=== PATIENT | female | born 1985 | race Caucasian/White ===

== ENCOUNTER 2017-09-05 11:12 | Emergency (ER) | payer OTHER ==
[2017-09-05] MEDS ORDERED: IBUPROFEN 600 MG TAB PO ONE (11:25)
[2017-09-05] MEDS ORDERED: ACETAMINOPHEN 500 MG TAB PO ONE (11:26)
[2017-09-05] MEDS ORDERED: NS 1,000 ML IV ONE (11:52)
--- NOTE | 2017-09-05 11:55 | EDPHY ---
H & P Time Seen by Provider: 09/05/17 11:38 HPI/ROS: CHIEF COMPLAINT: Cough, headache, fever HISTORY OF PRESENT ILLNESS: 32-year-old female presents emergency department reporting that for the last 2 and half days she has had a fever, headache, neck pain, feeling agitated, body aches, and cough. She reports feeling dizzy when she sits up or stands. No chest pain. No shortness of breath. No abdominal pain. No nausea. No vomiting. Patient is here with her mother. Mother reports patient has not been drinking fluids. Temperature on arrival to the emergency department was 102. Denies palpitations. REVIEW OF SYSTEMS: Aside from elements discussed in the HPI, a comprehensive 10-point review of systems was reviewed and is negative. PAST MEDICAL HISTORY: Depression. Denies asthma or other pulmonary history. SOCIAL HISTORY: Nonsmoker. VITAL SIGNS Reviewed by me. 38.8, 120. GENERAL: Well-developed, well-nourished, resting comfortably in no obvious respiratory distress. HEENT: Atraumatic. Eyes: No icterus, no injection. Mouth: moist mucous membranes. Dry lips. No erythema or lesions. Neck: supple with no adenopathy. No meningismus. Negative Kernig's. Negative Brudzinski's. LUNGS: Faint rhonchi and rales in the left base. CARDIAC: Tachycardic. Regular. No rubs murmurs or gallops. ABDOMEN: Soft, nontender, nondistended, bowel sounds normal. BACK: No CVA tenderness. EXTREMITIES: No trauma. No edema. Range of motion is normal throughout. NEURO: Alert and oriented, grossly nonfocal. SKIN: Warm and dry, no rash. PSYCHIATRIC: Normal mentation, no agitation. Smoking Status: Former smoker Constitutional: Initial Vital Signs Temperature (C) 38.8 C H 09/05/17 11:20 Heart Rate 120 H 09/05/17 11:20 Respiratory Rate 16 09/05/17 11:20 Blood Pressure 116/86 H 09/05/17 11:20 O2 Sat (%) 91 L 09/05/17 11:20 O2 Delivery Mode Room Air Allergies/Adverse Reactions: Penicillins Allergy (Verified 09/05/17 11:19) Home Medications: Medication Instructions Recorded LORazepam [Ativan (*)] 0.5 mg PO DAILY #21 tab 09/03/14 Sertraline HCl 09/03/14 Zyprexa 09/03/14 Albuterol Hfa Anes Only [Proair 2 puffs IH QID #1 mdi 09/05/17 Hfa Icu (*)] levOFLOXACIN [levAQUIN] 750 mg PO DAILY #6 tab 09/05/17 Medical Decision Making - Diagnostics Imaging Results: Imaging Impressions Chest X-Ray 09/05/17 11:51 Impression: Left lower lobe pneumonia. ED Course/Re-evaluation: IV was placed in the patient received a L of normal saline. Labs indicate no this eye ptosis, relatively normal electrolytes including a normal creatinine. Influenza is negative. Chest x-ray demonstrates a left lower lobe pneumonia. Patient received 1st dose of Levaquin while in the emergency department as she is allergic to penicillins. She received a neb treatment. Following the fluids in the neb, she looks much improved. She is bright, alert, in no distress. Patient was discharged with Levaquin and instructions regarding fluids, antipyretics, and albuterol meter dose inhaler. Of note, after the patient had been discharged patient's urinalysis was resulted showing 50-182 red cells per high-power field. Patient has had no urinary complaints. I note that the chart indicates she has just finished her period. I will contact the patient at home discussed this finding. Differential Diagnosis: Differential diagnosis for the patient's symptom complex was considered including but not limited to viral versus bacterial bronchitis, asthma, upper respiratory infection, lower respiratory infection, bronchospasm, pneumonia, influenza. - Data Points Laboratory Results: Laboratory Results 09/05/17 12:15 09/05/17 12:15 09/05/17 09/05/17 09/05/17 13:15 12:15 12:15 WBC 7.59 10^3/uL 10^3/uL (3.80-9.50) RBC 4.71 10^6/uL 10^6/uL (4.18-5.33) Hgb 14.1 g/dL g/dL (12.6-16.3) Hct 40.3 % % (38.0-47.0) MCV 85.6 fL fL (81.5-99.8) MCH 29.9 pg pg (27.9-34.1) MCHC 35.0 g/dL g/dL (32.4-36.7) RDW 12.9 % % (11.5-15.2) Plt Count 226 10^3/uL 10^3/uL (150-400) MPV 9.7 fL fL (8.7-11.7) Neut % (Auto) 77.3 % H % (39.3-74.2) Lymph % (Auto) 13.3 % L % (15.0-45.0) Barry % (Auto) 8.7 % % (4.5-13.0) Eos % (Auto) 0.1 % L % (0.6-7.6) Baso % (Auto) 0.3 % % (0.3-1.7) Nucleat RBC Rel Count 0.0 % % (0.0-0.2) Absolute Neuts (auto) 5.87 10^3/uL 10^3/uL (1.70-6.50) Absolute Lymphs (auto) 1.01 10^3/uL 10^3/uL (1.00-3.00) Absolute Monos (auto) 0.66 10^3/uL 10^3/uL (0.30-0.80) Absolute Eos (auto) 0.01 10^3/uL L 10^3/uL (0.03-0.40) Absolute Basos (auto) 0.02 10^3/uL 10^3/uL (0.02-0.10) Absolute Nucleated RBC 0.00 10^3/uL 10^3/uL (0-0.01) Immature Gran % 0.3 % % (0.0-1.1) Immature Gran # 0.02 10^3/uL 10^3/uL (0.00-0.10) Sodium Potassium Chloride Carbon Dioxide Anion Gap BUN Creatinine Estimated GFR Glucose Calcium Beta HCG, Qual NEGATIVE Urine Color YELLOW Urine Appearance HAZY Urine pH 7.5 (5.0-7.5) Ur Specific [place] 1.010 (1.002-1.030) Urine Protein TRACE H (NEGATIVE) Urine Ketones NEGATIVE (NEGATIVE) Urine Blood 3+ H (NEGATIVE) Urine Nitrate NEGATIVE (NEGATIVE) Urine Bilirubin NEGATIVE (NEGATIVE) Urine Urobilinogen 1.0 EU EU (0.2-1.0) Ur Leukocyte Esterase TRACE H (NEGATIVE) Urine RBC 50-182 /hpf H /hpf (0-3) Urine WBC 5-10 /hpf H /hpf (0-3) Ur Epithelial Cells TRACE /lpf /lpf (NONE-1+) Ur Renal Epithelial Cell OCCASIONAL /hpf H /hpf (NONE SEEN) Amorphous Sediment TRACE /hpf /hpf (NONE-1+) Urine Mucus TRACE /lpf /lpf (NONE-1+) Urine Glucose NEGATIVE (NEGATIVE) Nasal Influenza A PCR Nasal Influenza B PCR Influenza A,B Rapid 09/05/17 09/05/17 09/05/17 12:15 11:35 11:15 WBC RBC Hgb Hct MCV MCH MCHC RDW Plt Count MPV Neut % (Auto) Lymph % (Auto) Barry % (Auto) Eos % (Auto) Baso % (Auto) Nucleat RBC Rel Count Absolute Neuts (auto) Absolute Lymphs (auto) Absolute Monos (auto) Absolute Eos (auto) Absolute Basos (auto) Absolute Nucleated RBC Immature Gran % Immature Gran # Sodium 137 mEq/L mEq/L (135-145) Potassium 4.0 mEq/L mEq/L (3.5-5.2) Chloride 100 mEq/L mEq/L (97-110) Carbon Dioxide 24 mEq/l mEq/l (22-31) Anion Gap 13 mEq/L mEq/L (8-16) BUN 6 mg/dL L mg/dL (7-23) Creatinine 0.6 mg/dL mg/dL (0.6-1.0) Estimated GFR > 60 Glucose 121 mg/dL H mg/dL (70-100) Calcium 8.4 mg/dL L mg/dL (8.5-10.4) Beta HCG, Qual Urine Color Urine Appearance Urine pH Ur Specific Parlin Urine Protein Urine Ketones Urine Blood Urine Nitrate Urine Bilirubin Urine Urobilinogen Ur Leukocyte Esterase Urine RBC Urine WBC Ur Epithelial Cells Ur Renal Epithelial Cell Amorphous Sediment Urine Mucus Urine Glucose Nasal Influenza A PCR NEGATIVE FOR FLU A (NEGATIVE) Nasal Influenza B PCR NEGATIVE FOR FLU B (NEGATIVE) Influenza A,B Rapid NEGATIVE FOR FLU (NEGATIVE) Medications Given: Discontinued Medications Acetaminophen (Tylenol) 1,000 mg PO EDNOW ONE Stop: 09/05/17 11:27 Last Admin: 09/05/17 11:31 Dose: 1,000 mg Albuterol (Proventil Neb) 3 ml IH EDNOW ONE Stop: 09/05/17 12:56 Last Admin: 09/05/17 13:23 Dose: 3 ml Sodium Chloride (Ns) 1,000 mls @ 0 mls/hr IV ONCE ONE; Wide Open PRN Reason: Protocol Stop: 09/05/17 11:53 Last Admin: 09/05/17 12:08 Dose: 1,000 mls Ibuprofen (Motrin) 600 mg PO EDNOW ONE Stop: 09/05/17 11:26 Last Admin: 09/05/17 11:31 Dose: 600 mg Levofloxacin (Levaquin) 750 mg PO EDNOW ONE PRN Reason: Protocol Stop: 09/05/17 12:57 Last Admin: 09/05/17 13:22 Dose: 750 mg Departure - Departure Disposition: Home, Routine, Self-Care Clinical Impression: Pneumonia Qualifiers: Pneumonia type: due to unspecified organism Laterality: left Lung location: lower lobe of lung Qualified Code(s): J18.1 - Lobar pneumonia, unspecified organism Condition: Good Instructions: Pneumonia (ED) Additional Instructions: Please take antibiotics as directed. Levofloxacin 750 mg by mouth each day for the next 6 days starting tomorrow. You been given a prescription for a albuterol meter dose inhaler. Please use this as directed to help with any coughing as well as shortness of breath. You need to take Tylenol or ibuprofen for your fever. Please drink plenty of fluid. Return to the emergency department or seek care urgently if you are worsening despite the above treatments, especially if you develop severe shortness of breath, high fevers not controlled with Tylenol or ibuprofen, vomiting, chest pain, palpitations, or other concerns. Referrals: Kyleigh Shin MD [Primary Care Provider] - As per Instructions Stand Alone Forms: Work Excuse Prescriptions: Albuterol Hfa Anes Only [Proair Hfa Icu (*)] 2 puffs IH QID #1 mdi levOFLOXACIN [levAQUIN] 750 mg PO DAILY #6 tab
[2017-09-05 12:19] LABS: PLATELET COUNT 226 10^3/uL (150-400)
[2017-09-05] MEDS ORDERED: ALBUTEROL 3 ML DEYVIAL IH ONE (12:55)
[2017-09-05 13:37] VITALS: BP 103/68; PULSE 101; RESP 18; TEMP 98.2; O2SAT 94
== END 2017-09-05 14:00 | disposition home or self-care (01) ==
LOC: CED 11:12
DX: J18.9 Pneumonia, unspecified organism (principal); E86.9 Volume depletion, unspecified; Z87.891 Personal history of nicotine dependence
CPT/HCPCS: 71046; 96360; 99284; J7613; 80048-PO; 81003-PO; 81015-PO; 84703-PO; 85025-PO; 87400-PO

== ENCOUNTER 2017-09-19 14:51 | Emergency (ER) | payer OTHER ==
[2017-09-19] MEDS ORDERED: IPRATROPIUM/ALBUTEROL 3 ML DEYVIAL IH ONE (15:25)
[2017-09-19] MEDS ORDERED: NS 1,000 ML IV ONE (15:26)
[2017-09-19 15:52] LABS: PLATELET COUNT 354 10^3/uL (150-400)
--- NOTE | 2017-09-19 16:50 | EDPHY ---
H & P Time Seen by Provider: 09/19/17 15:02 HPI/ROS: 32-year-old female presents complaining of cough productive of a small streak of blood today also productive of large amount of green phlegm. She states she was recently diagnosed with a left lower lobe pneumonia approximately 2 weeks ago and was treated with Levaquin 750 mg for 6 days. She is here today concerned because she continues to have coughing and had that streak of blood today. No vomiting no diarrhea She has noted some lower back pain when coughing, no dysuria. Review of systems As per HPI General no fever no chills no weakness HEENT no eye pain no eye discharge. No eye redness, positive sore throat Respiratory positive cough no shortness of breath Cardiac no chest pain, no peripheral edema GI no abdominal pain, no diarrhea, no constipation, no nausea, no vomiting no flank pain, no hematuria, no dysuria Musculoskeletal positive myalgias no joint pain Heme no easy bruising, no easy bleeding Endo no polyuria, no polydipsia Skin no rashes, no pruritus Neuro no syncope, no dizziness, no headaches Psych is no suicidal ideation, no homicidal ideation Past Medical/Surgical History: Pneumonia Depression/anxiety Social History: Denies alcohol or drug use Smoking Status: Former smoker Physical Exam: 32-year-old female alert and oriented Alert and oriented nontoxic appearance, no acute distress afebrile Atraumatic normocephalic Extraocular muscles intact, anicteric Nares mild yellowish discharge Oropharynx mild erythema no tonsillar swelling no exudate no uvular deviation, tolerating own secretions Neck supple no lymphadenopathy Lungs clear to auscultation bilaterally Heart regular rate and rhythm Abdomen normoactive bowel sounds soft nontender Extremities no cyanosis clubbing or edema Skin no rash Constitutional: Initial Vital Signs Temperature (C) 36.5 C 09/19/17 15:01 Heart Rate 85 09/19/17 15:01 Respiratory Rate 20 09/19/17 15:01 Blood Pressure 120/66 09/19/17 15:01 O2 Sat (%) 92 09/19/17 15:01 O2 Delivery Mode Room Air Allergies/Adverse Reactions: Penicillins Allergy (Verified 09/19/17 15:00) Home Medications: Medication Instructions Recorded LORazepam [Ativan (*)] 0.5 mg PO DAILY #21 tab 09/03/14 Sertraline HCl 09/03/14 Zyprexa 09/03/14 levOFLOXACIN [levAQUIN (*)] 750 mg PO DAILY #5 tab 09/19/17 Medical Decision Making - Diagnostics Imaging Results: Imaging Impressions Chest X-Ray 09/19/17 15:27 Impression: Improving left lower lobe pneumonia, compared to 09/05/2017, with minimal residual airspace disease in this location. ED Course/Re-evaluation: Patient seen and evaluated for continuing cough after recent diagnosis of pneumonia. With concerned because of blood streak in her sputum. Labs CBC within normal limits Influenza negative Chest x-ray Resolving left lobar infiltrate Impression Pneumonia improving Plan Levaquin 750 mg x5 days Differential Diagnosis: Pneumonia, bronchitis, influenza, pharyngitis - Data Points Laboratory Results: Laboratory Results 09/19/17 15:35 09/19/17 15:35 09/19/17 09/19/17 09/19/17 15:35 15:35 15:35 WBC RBC Hgb Hct MCV MCH MCHC RDW Plt Count MPV Neut % (Auto) Lymph % (Auto) Shelby % (Auto) Eos % (Auto) Baso % (Auto) Nucleat RBC Rel Count Absolute Neuts (auto) Absolute Lymphs (auto) Absolute Monos (auto) Absolute Eos (auto) Absolute Basos (auto) Absolute Nucleated RBC Immature Gran % Immature Gran # Sodium Potassium Chloride Carbon Dioxide Anion Gap BUN Creatinine Estimated GFR Glucose Calcium Urine Color YELLOW Urine Appearance CLEAR Urine pH 6.0 (5.0-7.5) Ur Specific [place] 1.015 (1.002-1.030) Urine Protein NEGATIVE (NEGATIVE) Urine Ketones NEGATIVE (NEGATIVE) Urine Blood TRACE H (NEGATIVE) Urine Nitrate NEGATIVE (NEGATIVE) Urine Bilirubin NEGATIVE (NEGATIVE) Urine Urobilinogen 0.2 EU EU (0.2-1.0) Ur Leukocyte Esterase NEGATIVE (NEGATIVE) Urine RBC 1-3 /hpf /hpf (0-3) Urine WBC 0-1 /hpf /hpf (0-3) Ur Epithelial Cells 3+ /lpf H /lpf (NONE-1+) Urine Bacteria 1+ /hpf H /hpf (NONE SEEN) Urine Mucus 2+ /lpf H /lpf (NONE-1+) Urine Glucose NEGATIVE (NEGATIVE) Urine Test NEGATIVE Influenza A,B Rapid NEGATIVE FOR FLU (NEGATIVE) 09/19/17 09/19/17 15:35 15:35 WBC 8.64 10^3/uL 10^3/uL (3.80-9.50) RBC 4.73 10^6/uL 10^6/uL (4.18-5.33) Hgb 14.1 g/dL g/dL (12.6-16.3) Hct 41.2 % % (38.0-47.0) MCV 87.1 fL fL (81.5-99.8) MCH 29.8 pg pg (27.9-34.1) MCHC 34.2 g/dL g/dL (32.4-36.7) RDW 13.0 % % (11.5-15.2) Plt Count 354 10^3/uL 10^3/uL (150-400) MPV 9.8 fL fL (8.7-11.7) Neut % (Auto) 60.0 % % (39.3-74.2) Lymph % (Auto) 30.7 % % (15.0-45.0) Shelby % (Auto) 6.1 % % (4.5-13.0) Eos % (Auto) 2.2 % % (0.6-7.6) Baso % (Auto) 0.7 % % (0.3-1.7) Nucleat RBC Rel Count 0.0 % % (0.0-0.2) Absolute Neuts (auto) 5.18 10^3/uL 10^3/uL (1.70-6.50) Absolute Lymphs (auto) 2.65 10^3/uL 10^3/uL (1.00-3.00) Absolute Monos (auto) 0.53 10^3/uL 10^3/uL (0.30-0.80) Absolute Eos (auto) 0.19 10^3/uL 10^3/uL (0.03-0.40) Absolute Basos (auto) 0.06 10^3/uL 10^3/uL (0.02-0.10) Absolute Nucleated RBC 0.00 10^3/uL 10^3/uL (0-0.01) Immature Gran % 0.3 % % (0.0-1.1) Immature Gran # 0.03 10^3/uL 10^3/uL (0.00-0.10) Sodium 140 mEq/L mEq/L (135-145) Potassium 3.8 mEq/L mEq/L (3.5-5.2) Chloride 100 mEq/L mEq/L (97-110) Carbon Dioxide 24 mEq/l mEq/l (22-31) Anion Gap 16 mEq/L mEq/L (8-16) BUN 10 mg/dL mg/dL (7-23) Creatinine 0.7 mg/dL mg/dL (0.6-1.0) Estimated GFR > 60 Glucose 81 mg/dL mg/dL (70-100) Calcium 9.0 mg/dL mg/dL (8.5-10.4) Urine Color Urine Appearance Urine pH Ur Specific Paradox Urine Protein Urine Ketones Urine Blood Urine Nitrate Urine Bilirubin Urine Urobilinogen Ur Leukocyte Esterase Urine RBC Urine WBC Ur Epithelial Cells Urine Bacteria Urine Mucus Urine Glucose Urine Test Influenza A,B Rapid Medications Given: Discontinued Medications Albuterol/Ipratropium (Duoneb) 3 ml IH EDNOW ONE Stop: 09/19/17 15:26 Last Admin: 09/19/17 15:50 Dose: 3 ml Sodium Chloride (Ns) 1,000 mls @ 0 mls/hr IV ONCE ONE PRN Reason: Wide Open Stop: 09/19/17 15:27 Last Admin: 09/19/17 15:50 Dose: 1,000 mls Departure - Departure Disposition: Home, Routine, Self-Care Clinical Impression: Pneumonia Condition: Good Instructions: Pneumonia (ED) Referrals: Kyleigh Shin MD [Primary Care Provider] - As per Instructions Prescriptions: levOFLOXACIN [levAQUIN (*)] 750 mg PO DAILY #5 tab
[2017-09-19 17:14] VITALS: BP 118/68; PULSE 74; RESP 18; TEMP 98.1; O2SAT 95
== END 2017-09-19 17:15 | disposition home or self-care (01) ==
LOC: CED 14:51
DX: J18.9 Pneumonia, unspecified organism (principal); Z87.891 Personal history of nicotine dependence
CPT/HCPCS: 71046-PO; 80048-PO; 81003-PO; 81015-PO; 81025-PO; 85025-PO; 87400-PO

== ENCOUNTER 2018-09-04 21:16 | Emergency (ER) | payer OTHER, MEDICAID ==
[2018-09-04] MEDS ORDERED: NS 1,000 ML IV ONE (21:35)
--- NOTE | 2018-09-04 21:40 | EDPHY ---
H & P Stated Complaint: Cough x 3 weeks, fainted for less than minute per mom Time Seen by Provider: 09/04/18 21:20 HPI/ROS: 33 yo F presents c/o cough for 3 weeks, started on azithromycin 4 days ago. Comes in tonight because she had an episode where she was coughing really hard and passed out. Pt with cold and cough sx. No fever today. No chest pain. Review of systems As per HPI General no fever no chills no weakness HEENT no eye pain no eye discharge. No eye redness, no sore throat Respiratory positive cough, no shortness of breath Cardiac no chest pain, no peripheral edema GI no abdominal pain, no diarrhea, no constipation, no nausea, no vomiting no flank pain, no hematuria, no dysuria Musculoskeletal no myalgias, no joint pain Heme no easy bruising, no easy bleeding Endo no polyuria, no polydipsia Skin no rashes, no pruritus Neuro positive syncope, no dizziness, no headaches Psych is no suicidal ideation, no homicidal ideation Source: Patient, Family Exam Limitations: No limitations - Personal History LMP (Females 10-55): 22-28 Days Ago Current Tetanus Diphtheria and Acellular Pertussis (TDAP): Yes Tetanus Vaccine Date: within 10 years - Medical/Surgical History Hx Asthma: No Hx Chronic Respiratory Disease: No Hx Diabetes: No Hx Cardiac Disease: No Hx Renal Disease: No Hx Cirrhosis: No Hx Alcoholism: No Hx HIV/AIDS: No Hx Splenectomy or Spleen Trauma: No Other PMH: schizophenia, catatomia, PTSD, depression - Family History Significant Family History: No pertinent family hx - Social History Smoking Status: Never smoked Alcohol Use: None Drug Use: None - Physical Exam Exam: 33-year-old female Alert and oriented nontoxic appearance, no acute distress afebrile Atraumatic normocephalic Extraocular muscles intact, anicteric Nares mild yellowish discharge Oropharynx mild erythema no tonsillar swelling no exudate no uvular deviation, tolerating own secretions Neck supple no lymphadenopathy Lungs clear to auscultation bilaterally Heart regular rate and rhythm, no murmur Abdomen normoactive bowel sounds soft nontender Extremities no cyanosis clubbing or edema Skin no rash Constitutional: Initial Vital Signs Temperature (C) 36.8 C 09/04/18 21:19 Heart Rate 79 09/04/18 21:19 Respiratory Rate 16 09/04/18 21:19 Blood Pressure 139/96 H 09/04/18 21:19 O2 Sat (%) 94 09/04/18 21:19 O2 Delivery Mode Room Air Allergies/Adverse Reactions: Penicillins Allergy (Verified 09/04/18 21:20) Pt reports rash Home Medications: Medication Instructions Recorded Sertraline HCl 09/03/14 Zyprexa 09/03/14 Ativan 09/04/18 Azithromycin 09/04/18 Medical Decision Making ED Course/Re-evaluation: Patient seen and evaluated for cough x3 weeks with syncopal episode while coughing tonight. Chest x-ray negative CBC within normal limits BMP normal Dimer negative imp acute bronchitis flu like illness likely cough syncope Plan dc home stop azithro because it can interact with pts zyprexa and there is currently no indication for antibiotics. otc cold medicines rest, drink plenty of fluids follow up with primary this week if you continue to have problems return immediately for any further syncope/fainting episodes Differential Diagnosis: Differential diagnosis considered but not limited to Pneumonia, bronchitis, URI, adverse reaction to medication, arrhythmia, electrolyte abnormality, pulmonary embolus, viral syndrome - Data Points Laboratory Results: Laboratory Results 09/04/18 21:40 Medications Given: Discontinued Medications Sodium Chloride (Ns) 1,000 mls @ 0 mls/hr IV ONCE ONE PRN Reason: Wide Open Stop: 09/04/18 21:36 Last Admin: 09/04/18 21:46 Dose: 1,000 mls Point of Care Test Results: Chemistry 09/04/18 21:52 POC Sodium 143 mEq/L mEq/L (135-145) POC Potassium 3.8 mEq/L mEq/L (3.3-5.0) POC Chloride 107.0 mEq/L mEq/L (97-110) POC Total CO2 28 mEq/L mEq/L (22-31) POC BUN 9 mg/dL mg/dL (7-23) POC Creatinine 0.8 mg/dL mg/dL (0.6-1.0) POC Glucose 82 mg/dL mg/dL (70-100) POC Calcium 9.3 mg/dL mg/dL (8.5-10.4) D-Dimer D-Dimer Collection Date 09/04/18 D-Dimer Collection Time 21:40 D-Dimer (ng/ml) <100 Departure - Departure Disposition: Home, Routine, Self-Care Clinical Impression: Cough syncope, Bronchitis Condition: Good Instructions: Syncope (ED), Acute Bronchitis (ED) Additional Instructions: Stop the Azithromycin as it may interact with your Zyprexa Drink plenty of liquids and consider over the counter medicine like Mucinex or other cough syrup with guafenisin to get mucous moving . Contact your primary care tomorrow to arrange a follow up appointment. Referrals: NONE *PRIMARY CARE P,. [Primary Care Provider] - As per Instructions [facility] [Provider Group] - As per Instructions
[2018-09-04 22:30] LABS: PLATELET COUNT 307 10^3/uL (150-400)
--- NOTE | 2018-09-04 22:38 | CPEKG ---
Test Reason : OPEN Blood Pressure : / mmHG Vent. Rate : 070 BPM Atrial Rate : 069 BPM P-R Int : 189 ms QRS Dur : 095 ms QT Int : 413 ms P-R-T Axes : 065 062 047 degrees QTc Int : 446 ms Sinus rhythm Multiple ventricular premature complexes Confirmed by Louise Barroso ([id number]) on 09/04/2018 10:37:53 PM Referred By: Confirmed By:Louise Barroso
[2018-09-04 23:24] VITALS: BP 121/74
== END 2018-09-04 23:19 | disposition home or self-care (01) ==
LOC: CED 21:16
DX: R55 Syncope and collapse (principal); J20.9 Acute bronchitis, unspecified
CPT/HCPCS: 71046-PO; 80048-ER; 96360-ER